=== PATIENT | male | born 1995 | race Hispanic/Latino ===

== ENCOUNTER 2016-10-23 11:08 | Emergency (ER) | payer SELFPAY ==
[2016-10-23 11:15] VITALS: BMI 29.8
[2016-10-23 11:18] VITALS: TEMP 98.5
[2016-10-23] MEDS ORDERED: Silver Sulfadiazine 1% Cream (20 gm) TOP STA (11:56)
[2016-10-23] MEDS ORDERED: TDAP Vaccine 0.5 mL Syr IM ONE (11:57)
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
[2016-10-23 13:10] VITALS: BP 124/80; PULSE 68; RESP 16; O2SAT 100
== END 2016-10-23 13:14 | disposition home or self-care (01) ==
LOC: ED 11:08
DX: T23.201A Burn of second degree of right hand, unspecified site, initial encounter (principal); X19.XXXA Contact with other heat and hot substances, initial encounter; Z23 Encounter for immunization